=== PATIENT | female | born 1925 | race Caucasian/White ===

== ENCOUNTER 2016-10-08 14:00 | Outpatient (RCR) | payer OTHER ==
[~2016-10-08 14:00] MED LIST: ALENDRONAT70 MG/75 M PO; ARICEPT5 MG ORAL; COMBIGAN EYE DRO5 ML RIGHT EYE; COSOPT1 DRO2 RIGHT EYE; LEVOTHYROXINE25 MCG ORAL; LITHIUM CARBON300 MG ORAL; LUMIGAN2.5 ML RIGHT EYE; NAMENDA10 MG ORAL; TIMOPTIC 0.5%1 DRO1 RIGHT EYE
== END 2016-10-14 | disposition home or self-care (01) ==
LOC: PTY 14:00
DX: M17.0 Bilateral primary osteoarthritis of knee (principal)

== ENCOUNTER 2016-10-22 15:00 | Outpatient (RCR) | payer OTHER | END 2016-11-13 | disposition home or self-care (01) | LOC: PTY 15:00 | DX: M17.0 Bilateral primary osteoarthritis of knee (principal) ==